=== PATIENT | male | born 2000 | race Caucasian/White ===

== ENCOUNTER 2019-08-27 20:54 | Emergency (ER) | payer BC ==
[2019-08-27 21:00] VITALS: BP 129/73; PULSE 82; TEMP 98; BMI 22.5
[2019-08-27] MEDS ORDERED: methylPREDNISolone NA SUCC 125 MG/2 ML VIAL IVPUSH ONE (21:09)
[2019-08-27] MEDS ORDERED: FAMOTIDINE 20 MG/50 ML IVPB 20 MG/50 ML MG IVPB ONE ×2 (21:10→21:11)
[2019-08-27] MEDS ORDERED: methylPREDNISolone NA SUCC 125 MG/2 ML VIAL ONE (21:11)
--- NOTE | 2019-08-27 21:13 | PDOC ---
History of Present Illness - General Chief Complaint: Allergic Reaction Stated Complaint: ALLERGY REACTION Time Seen by Provider: 08/27/19 21:02 - History of Present Illness Initial Comments: Judah Bedolla is a 19 y/o male with PMH significant for asthma, presenting today after eating a sauce with nuts. Reports that he has a nut allergy but has never been in the hospital for an allergy before. Does not have an epi pen. Ate the food at 6:30pm. Reports throat swelling and closing. No wheezing. No nausea/ vomiting. Took benadryl 25 mg x4 immediately after. No chest pain. No abdominal pain. Past History - Past Medical History Allergies/Adverse Reactions: Allergies Allergy/AdvReac Type Severity Reaction Status Date / Time peanut Allergy Verified 08/27/19 21:00 Home Medications: Ambulatory Orders Acetaminophen [Tylenol] 650 mg PO PRN 08/28/19 EPINEPHrine (EPI-PEN 0.3MG) [Epipen 0.3MG -] 0.3 mg IM ASDIR #2 pens 08/28/19 Asthma: Yes COPD: No - Psycho Social/Smoking Cessation Hx Smoking History: Never smoked Review of Systems - Review of Systems Comments:: GENERAL/CONSTITUTIONAL: No fever or chills. No weakness._ HEAD, EYES, EARS, NOSE AND THROAT: No change in vision. No change in hearing. Reports mild throat swelling. CARDIOVASCULAR: No chest pain. RESPIRATORY: Denies cough, hemoptysis Reports mild difficulty breathing. GASTROINTESTINAL: No nausea, vomiting, diarrhea or constipation._ GENITOURINARY: No dysuria, frequency, or change in urination._ MUSCULOSKELETAL: No joint or muscle swelling or pain. No neck or back pain._ SKIN: No rash_ NEUROLOGIC: No headache, vertigo, loss of consciousness, or change in strength/ sensation._ ENDOCRINE: No increased thirst. No abnormal weight change_ HEMATOLOGIC/LYMPHATIC: No anemia, easy bleeding, or history of blood clots._ ALLERGIC/IMMUNOLOGIC: No hives. *Physical Exam - Vital Signs Last Vital Signs Temp Pulse Resp BP Pulse Ox 98 F 82 18 129/73 100 08/27/19 20:56 08/27/19 20:56 08/27/19 20:56 08/27/19 20:56 08/27/19 20:56 - Physical Exam GENERAL: Awake, alert, and oriented to person/place/time, in no acute distress_ HEAD: No signs of trauma, normocephalic, atraumatic _ EYES: PERRLA, EOMI, sclera anicteric, conjunctiva clear_ ENT: Hearing grossly normal, nares patent, oropharynx clear without exudates. No uvular deviation. Moist mucosa. Airway patent. NECK: Normal ROM, supple, no lymphadenopathy, JVD, or masses_ LUNGS: No distress, speaks in full sentences, clear to auscultation bilaterally. HEART: Regular rate and rhythm, normal S1 and S2, no murmurs appreciated, peripheral pulses normal and equal bilaterally._ ABDOMEN: Soft, nontender, normoactive bowel sounds. No guarding, no rebound. No masses_ EXTREMITIES: Normal inspection, Normal range of motion, no edema. No clubbing or cyanosis_ NEUROLOGICAL: Cranial nerves II through XII grossly intact. Normal speech, normal gait, no focal sensorimotor deficits _ SKIN: Warm, Dry, normal turgor, no rashes or lesions noted_ Medical Decision Making - Medical Decision Making 08/27/19 21:12 19M hx of asthma and nut allergy presenting s/p nut consumption at dinner. Took bendryl 25 mg x4. No epi pen. -solumedrol -pepcid 08/27/19 22:59 Pt reassessed. Reports mild lump in throat. Will give epi and reassess. 08/28/19 00:06 Pt reassesed. Reports much improvement. Plan to d/c home with epi pen rx. All questions answered. Return precautions given. Pt verbalized understanding and agreement with plan. Discharge - Discharge Information Problems reviewed: Yes Clinical Impression/Diagnosis: Allergic reaction Condition: Stable Disposition: HOME - Admission No - Additional Discharge Information Prescriptions: EPINEPHrine (EPI-PEN 0.3MG) [Epipen 0.3MG -] 0.3 mg IM ASDIR #2 pens - Follow up/Referral Referrals: Luis Manuel Machado MD [Staff Physician] - - Patient Discharge Instructions Patient Printed Discharge Instructions: DI for General Allergic Reactions Additional Instructions: Please obtain an epi pen and keep it with you at all times. Please avoid peanut products. If you experience any new, worsening, or concerning symptoms, including shortness of breath, wheezes, or any other concerns, please return to the emergency department. - Post Discharge Activity
[2019-08-27] MEDS ORDERED: SODIUM CHLORIDE 0.9% 500 ML INFUS.BAG IV ONE (21:19)
--- NOTE | 2019-08-27 21:42 | PDOC ---
Documentation entered by Albania Waller SCRIBE, acting as scribe for Massiel Ackerman MD. Massiel Ackerman MD: This documentation has been prepared by the Christin parra Adrianna, SCRIBE, under my direction and personally reviewed by me in its entirety. I confirm that the documentation accurately reflects all work, treatment, procedures, and medical decision making performed by me. Attending Attestation - Resident Resident Name: Curt Greco - ED Attending Attestation I have performed the following: I have examined & evaluated the patient, The case was reviewed & discussed with the resident, I agree w/resident's findings & plan, Exceptions are as noted - HPI HPI: The patient is a 19 year old male, with a significant PMH of asthma, who presents to the ED for evaluation of allergic reaction. Patient notes he has a peanut allergy, and unknowingly had a sauce earlier tonight that contained nuts. He has taken 25mg of Benadryl x4 since the consumption. Patient has never been to the hospital for allergic reaction in the past, and does not own an epipen. He endorses some swelling of the throat, with slight SOB. Otherwise, denies any acute complaints. Allergies: peanut Surgical History: None reported Social History: Denies EtOH, tobacco, or illicit drug use - Physicial Exam PE: 08/27/19 21:42 19 yo male p/wfeeling his tongue is swollen and he has minimal lip swelling head ncat lips minimal swelling Oral exam no uvular edema neck supple lungs cta b/l cvs [id number] abd ntender skin no hives neuro axox3,ambulatory,motor strength 5/5, b/l 08/27/19 22:46 - Medical Decision Making 08/27/19 21:40 pt has known allergy to nuts and did not know there were nuts in the sauce he ate, he took benadryl prior to arrival 08/27/19 22:48 She did receive steroids and epi and feels back to baseline Impression nut allergy Plan DC home with EpiPen prescription 08/27/19 23:54 08/28/19 00:02
[2019-08-27] MEDS ORDERED: EPINEPHrine 1:1,000 0.3 MG/0.3 ML SYR IM ONE (22:45)
[2019-08-27] MEDS ORDERED: EPINEPHrine/PF 1 MG/1 ML (1:1,000) AMPULE ONE (23:17)
== END 2019-08-28 00:14 | disposition home or self-care (01) ==
LOC: JER 20:54
PROC: 3E033GC Introduction of Other Therapeutic Substance into Peripheral Vein, Percutaneous Approach (ICD-10-PCS; principal; 2019-08-27)
PROC: 3E0333Z Introduction of Anti-inflammatory into Peripheral Vein, Percutaneous Approach (ICD-10-PCS; 2019-08-27)
PROC: 3E0233Z Introduction of Anti-inflammatory into Muscle, Percutaneous Approach (ICD-10-PCS; 2019-08-27)
DX: J39.2 Other diseases of pharynx (principal); T78.1XXA Other adverse food reactions, not elsewhere classified, initial encounter; X58.XXXA Exposure to other specified factors, initial encounter; Z91.010 Allergy to peanuts
CPT/HCPCS: 99284-25